=== PATIENT | male | born 1955 | race Two or more races ===

== ENCOUNTER 2017-02-02 16:00 | Inpatient (IN) | payer OTHER ==
[~2017-02-02] VITALS: Ht 180.3 cm; Wt 89.8 kg
--- NOTE | 2017-02-02 16:00 | NUR ---
PT [id number] FROM DR OFFICE: R FACIAL WOUND DEHISCENCE S/P FACE LIFT 02/01/17. PT HAS LAC #20 IV ACCESS PATENT. PLACED ON MONITOR. APPLIED PRESSURE TO WOUND. AWAITING MD ORDER.
[2017-02-02] MEDS ORDERED: IV NS 0.9% 1,000 ML ONE ×3 (16:11→23:35)
[2017-02-02] MEDS ORDERED: IV SET PRIMARY PUMP SET 1 EA INFUS.SET MC ONE ×4 (16:11→23:47)
--- NOTE | 2017-02-02 16:20 | NUR ---
CALLED [facility] TRANSFER LINE, , SPOKE WITH SEBASTIAN, TRANSFERRED CALL TO DR. FELIX
[2017-02-02 16:24] LABS: BASOPHILS # (AUTO) 0.1 /CMM (0.0-0.2); BASOPHILS % (AUTO) 0.5 % (0.0-2.0); EOSINOPHILS # (AUTO) 0.1 /CMM (0.0-0.7); EOSINOPHILS % (AUTO) 0.7 % (0.0-6.0); HEMATOCRIT 40 % (39-51); HEMOGLOBIN 13.5 g/dL (13.5-17.5); LYMPHOCYTES # (AUTO) 0.9 /CMM (0.8-4.8); LYMPHOCYTES % (AUTO) 8.1 % (20.0-44.0); MEAN CORPUSCULAR HEMOGLOBIN 30 PG (26.0-33.0); MEAN CORPUSCULAR HGB CONC 34 g/dl (31.0-36.0); MEAN CORPUSCULAR VOLUME 88 fL (80-96); MONOCYTES # (AUTO) 0.6 /CMM (0.1-1.30); MONOCYTES % (AUTO) 5.4 % (2.0-12.0); NEUTROPHILS # (AUTO) 9.1 /CMM (1.8-8.9); NEUTROPHILS % (AUTO) 85.3 % (43.0-81.0); PLATELET COUNT (AUTO) 322 /CMM (150-450); RDW COEFFICIENT OF VARIATION 14.9 (11.5-15.0); RED BLOOD CELL COUNT(AUTO) 4.53 MIL/uL (4.5-6.0); WHITE BLOOD COUNT (AUTO) 10.8 K/uL (4.3-11.0)
[2017-02-02] MEDS ORDERED: IV NS 0.9% 1,000 ML BAG IV ONE (16:30)
[2017-02-02 16:34] LABS: CALCIUM, SERUM 8.8 mg/dL (8.5-10.1); CREATININE 0.9 mg/dL (0.6-1.3); POTASSIUM 4.3 mmol/L (3.5-5.1)
[2017-02-02 16:38] LABS: PROTHROMBIN TIME 10.4 SECS (9.5-12.7)
[2017-02-02 16:40] LABS: ALBUMIN 3.2 g/dL (3.4-5.0); BILIRUBIN,DIRECT 0.2 mg/dL (0.0-0.2); BILIRUBIN,TOTAL 1.2 mg/dL (0.2-1.0); TOTAL PROTEIN, SERUM 6.6 g/dL (6.4-8.2)
--- NOTE | 2017-02-02 16:42 | NUR ---
FAXED FACESHEET TO SEBASTIAN AT [phone]
--- NOTE | 2017-02-02 17:03 | NUR ---
RECEIVED CALL FROM [facility], PT ACCEPTED AND ILL GO TO OR PHONE #; [phone] FAX, AUGUSTIN
--- NOTE | 2017-02-02 17:12 | NUR ---
CALLED [facility] FOR TRANSPORT TO [facility], ETA 90 MIN
--- NOTE | 2017-02-02 17:29 | NUR ---
REPORT GIVEN TO NURSE PARKINSON AT [facility] OR 5 : [phone].
--- NOTE | 2017-02-02 17:41 | NUR ---
CALLED MULTIPLE AMBULANCE COMPANIES INCLUDING: [facility], [facility], [facility], [facility], [facility], [facility], [facility], [facility], [facility], [facility]NA, [facility]AN[facility], AFTER CALL WITH [facility] TO TRY TO GET BETTER ETA, EVERY PLACE SAID AT LEAST 90 MIN- 2 HOURS.
[2017-02-02] MEDS ORDERED: IV SET PRIMARY 1 EA INFUS.SET MC ONE (17:57)
[2017-02-02] MEDS ORDERED: IV NS 0.9% 1,000 ML IV ONE (18:00)
--- NOTE | 2017-02-02 18:04 | NUR ---
CALLED , , TRANSFERRED CALL TO
[2017-02-02] MEDS ORDERED: OMEG-72 PO (18:25)
[2017-02-02] MEDS ORDERED: TEST200V3 IM (18:25)
[2017-02-02] MEDS ORDERED: ANAS1TAB8 PO (18:25)
[2017-02-02] MEDS ORDERED: EMTR1TAB6 PO (18:25)
[2017-02-02] MEDS ORDERED: ATOR40TA PO (18:25)
[2017-02-02] MEDS ORDERED: LORA1TAB PO (18:25)
[2017-02-02] MEDS ORDERED: VALS80TA2 PO (18:25)
--- NOTE | 2017-02-02 18:50 | NUR ---
CALLED [facility] TO [facility]BULANCE TRANSPORT
[2017-02-02 18:55] LABS: BASOPHILS # (AUTO) 0.2 /CMM (0.0-0.2); BASOPHILS % (AUTO) 1.9 % (0.0-2.0); EOSINOPHILS % (AUTO) 0.1 % (0.0-6.0); HEMATOCRIT 33 % (39-51); HEMOGLOBIN 11.2 g/dL (13.5-17.5); LYMPHOCYTES # (AUTO) 1.2 /CMM (0.8-4.8); MEAN CORPUSCULAR HEMOGLOBIN 30 PG (26.0-33.0); MEAN CORPUSCULAR HGB CONC 34 g/dl (31.0-36.0); MEAN CORPUSCULAR VOLUME 88 fL (80-96); MONOCYTES # (AUTO) 0.6 /CMM (0.1-1.30); MONOCYTES % (AUTO) 5.7 % (2.0-12.0); NEUTROPHILS # (AUTO) 8.1 /CMM (1.8-8.9); NEUTROPHILS % (AUTO) 80.3 % (43.0-81.0); PLATELET COUNT (AUTO) 280 /CMM (150-450); RDW COEFFICIENT OF VARIATION 15.2 (11.5-15.0); RED BLOOD CELL COUNT(AUTO) 3.77 MIL/uL (4.5-6.0); WHITE BLOOD COUNT (AUTO) 10.1 K/uL (4.3-11.0)
--- NOTE | 2017-02-02 18:55 | NUR ---
CALLED NURSING SUP. FOR TELE BED
--- NOTE | 2017-02-02 19:00 | NUR ---
PT TRANSFER TO OR FOR SURGERY
--- NOTE | 2017-02-02 19:07 | NUR ---
DR.TIM GAY JOY PATTERN ASSEMBLER
--- NOTE | 2017-02-02 19:17 | NUR ---
PT TRANSFERRED TO OR FOR EMERGENCY SURGERY.
[2017-02-02] MEDS ORDERED: LIDOCAINE 0.5% HCL 50 ML VIAL ONE (19:19)
[2017-02-02] MEDS ORDERED: ALBUMIN 5% 12.5 GM/250 ML BOTTLE IV ONE (20:14)
[2017-02-02] MEDS ORDERED: ALBUMIN 5% 250 ML IV ONE (20:22)
[2017-02-02] MEDS ORDERED: HEMOSTATIC MATRIX 10 ML 1 EACH PAD MC ONE (20:36)
[2017-02-02] MEDS ORDERED: MORPHINE SULFATE INJ 10 MG/ML DISP.SYRIN ONE ×2 (21:18→23:30)
[2017-02-02] MEDS ORDERED: IV NS 0.9% 1,000 ML IV PRN (21:22)
[2017-02-02 21:30] VITALS: BP 103/67
[2017-02-02] MEDS ORDERED: ACETAMINOPHEN 325 MG TABLET PO PRN (21:30)
[2017-02-02] MEDS ORDERED: Z GUARD REMEDY 2 OZ OINT TP PRN (21:30)
[2017-02-02] MEDS ORDERED: MORPHINE SULFATE INJ 2 MG/ML DISP.SYRIN IV PRN (21:30)
[2017-02-02] MEDS ORDERED: ZOLPIDEM TARTRATE 5 MG TABLET PO PRN (21:30)
[2017-02-02] MEDS ORDERED: PROPOFOL 100 ML IV ONE (21:30)
[2017-02-02] MEDS ORDERED: DEXAMETHASONE SOD PHOSPHATE 10 MG/ML VIAL IV STA (21:36)
[2017-02-02 21:51] VITALS: BP 116/71
--- NOTE | 2017-02-02 21:51 | NUR ---
PER DR MCINTOSH PLACED PT ON AC 14, 500, PEEP 5 AND 50% FIO2, pt was intubated with 7.0 ET tube and secured at 26 at the lip,pts ET tube is held with a suture which was done by the MD, and also secured with cloth tape.
--- NOTE | 2017-02-02 21:55 | NUR ---
ICU/RN RECEIVED DIRECT FROM OR S/P FACELIFT W/ UPPER BLEPH.PT ON VENT 50% FI02 SAT 100%,BOTH EYES COMPLETELY SHUT FROM SWELLING MEENA DRAIN TO RT AN LT TEMPORAL AREA W/ SCANT BLOODY DRAINAGE ON LT SIDE 0 ON RT SIDE, FACE SWOLLEN AND W/ COBAN HEAD DRESSING.SUTURES BILATERALLY UPPER BLEPH.HEAD OF BED ON 45DEGREE ANGLE W/ NECK ROLL.MODERATE TO SEVERE BRUISING TO NECK,SOFT AND FLAT.
[2017-02-02] MEDS ORDERED: DESMOPRESSIN 20 MCG in IV NS 0.9% 50 ML IV ONE (22:00)
[2017-02-02] MEDS ORDERED: PROPOFOL 100 ML IV PRN (22:00)
[2017-02-02] MEDS ORDERED: NOREPINEPHRINE 8 MG in IV D5W 500 ML IV PRN (22:00)
[2017-02-02 22:14] VITALS: BP 133/98
[2017-02-02] MEDS: CEFAZOLIN 1 GM in IV D5W 50 ML IV SCH (22:30)
[2017-02-02 22:36] LABS: HEMATOCRIT 34 % (39-51); HEMOGLOBIN 11.2 g/dL (13.5-17.5); LYMPHOCYTES # (AUTO) 0.8 /CMM (0.8-4.8); LYMPHOCYTES % (AUTO) 5.1 % (20.0-44.0); MEAN CORPUSCULAR HEMOGLOBIN 29 PG (26.0-33.0); MEAN CORPUSCULAR HGB CONC 33 g/dl (31.0-36.0); MEAN CORPUSCULAR VOLUME 89 fL (80-96); MONOCYTES # (AUTO) 0.5 /CMM (0.1-1.30); MONOCYTES % (AUTO) 3.2 % (2.0-12.0); NEUTROPHILS # (AUTO) 15.1 /CMM (1.8-8.9); NEUTROPHILS % (AUTO) 91.7 % (43.0-81.0); PLATELET COUNT (AUTO) 261 /CMM (150-450); RDW COEFFICIENT OF VARIATION 16.3 (11.5-15.0); RED BLOOD CELL COUNT(AUTO) 3.83 MIL/uL (4.5-6.0); WHITE BLOOD COUNT (AUTO) 16.5 K/uL (4.3-11.0)
[2017-02-02 23:00] VITALS: BP 143/76
[2017-02-02] MEDS ORDERED: MORPHINE SULFATE INJ 2 MG/ML DISP.SYRIN ONE (23:03)
--- NOTE | 2017-02-02 23:10 | NUR ---
ICU/COGNOS ARCHITECT PT HAS MODERATE TO SEVER SWELLING TO FACE, S/P FACE LIGHT WITH SUTURES AND STERRI STRIPS TO SIDE OF EYES, UPPER BILATERAL BLEPH. ICED 4X4 TO EYES WITH ICE MASK APPLIED FOR 20 MINUTES ON THEN 20 MINUTES OFF. WILL CONTINUE THIS UNTIL SWELLING HAS SUBSIDED. BILATERAL J/P WERE MILKED TO START THE FLOW. THERE APPEARS TO BE SOME DARK BLOOD IN TUBE, POSSIBLE CLOT WILL WATCH FOR THIS. NECK HAS MODERATE TO SEVER BRUISING UNDER DRESSING, BUT IS SOFT AND FLAT TO TOUCH. RN NURSE NOTIFIED OF FINDINGS.
[2017-02-02 23:12] VITALS: BP 143/76
[2017-02-02 23:30] VITALS: BP 92/42
[2017-02-02] MEDS ORDERED: MORPHINE SULFATE INJ 10 MG/ML DISP.SYRIN IV PRN (23:30)
[2017-02-02] MEDS ORDERED: CEFAZOLIN 1 GM ONE (23:41)
[2017-02-02] MEDS ORDERED: DEXAMETHASONE SOD PHOSPHATE 4 MG/ML VIAL ONE (23:41)
[2017-02-02] MEDS ORDERED: IV D5W 50 ML IV ONE (23:42)
[2017-02-02] MEDS ORDERED: FENTANYL PF 100MCG/2ML AMPUL ONE ×2 (23:45→23:46)
[2017-02-02] MEDS ORDERED: IV NS 0.9% 250 ML IV ONE (23:46)
[2017-02-02] MEDS ORDERED: SECONDARY IV SET 1 EA INFUS.SET MC ONE (23:47)
[2017-02-02] MEDS ORDERED: NOREPINEPHRINE 4 MG/4 ML AMPUL IV ONE (23:55)
[2017-02-02] MEDS ORDERED: IV D5W 500 ML IV ONE (23:56)
[2017-02-02] MEDS ORDERED: CEFAZOLIN 2 GM ONE (23:59)
[2017-02-03] VITALS (74 sets, daily range): BP systolic 56–204; BP diastolic 30–103
[2017-02-03] MEDS ORDERED: DESMOPRESSIN 4 MCG/ML AMPUL ONE
[2017-02-03] MEDS ORDERED: FENTANYL CITRATE IV 1,250 MCG in IV NS 0.9% 225 ML IV PRN ×2
[2017-02-03] MEDS ORDERED: IV NS 0.9% 50 ML IV ONE (00:05)
[2017-02-03] MEDS ORDERED: IV SET PRIMARY PUMP SET 1 EA INFUS.SET MC ONE ×3 (00:08→07:46)
[2017-02-03] MEDS ORDERED: DOPamine 400MG/D5W 250ML RTU 250 ML IV ONE (00:29)
[2017-02-03] MEDS ORDERED: PROPOFOL 100 ML IV ONE ×3 (00:29→05:20)
[2017-02-03] MEDS ORDERED: DOPamine 400 MG/D5W 250 ML RTU PIGGYBACK IV ONE (00:30)
[2017-02-03] MEDS ORDERED: NOREPINEPHRINE 16 MG in IV D5W 500 ML IV PRN (00:30)
[2017-02-03 00:39] LABS: ABG BASE EXCESS 2.9 mmol/L; ABG OXYGEN SATURATION 98.2 % (92.0-98.5); ABG PCO2 56.1 mmHg (35.0-45.0); ABG PO2 178.2 mmHg (75.0-100.0); ABG TOTAL HEMOGLOBIN 10.9 G/dL (13.5-18.0); AaDO2 115.2 mmHg; COHb 0.4 % (0.5-1.5); MetHb 0.9 % (0.0-1.5); O2Hb 96.9 % (94.0-97.0); SITE, ABG Right Radial
--- NOTE | 2017-02-03 00:45 | NUR ---
ICU/CAFE MANAGER PER RESPIRATORY THERAPIST BERNABE Griffith ORDERS WERE RECEIVED TO DO VENT CHANGES ORDERS WERE PLACED IN COMPUTER, PER MD SAMARIA SUAZO. ALSO AT THIS TIME RN WAS NOTIFIED NOT TO DO EKG, THIS TOO WAS CANCELLED. ORDERS WERE CARRIED OUT FOR RN BUSY AT BEDSIDE.
--- NOTE | 2017-02-03 00:59 | NUR ---
ICU/RN GAY NOTIFIED OF V-TACH W/SBP OF 84MMHG.W/STRONG PULSES.
--- NOTE | 2017-02-03 01:20 | NUR ---
ICU/RN.SBP 66MMHG,250ML NS WIDE OPEN WHILE AWAITING FOR SAMARIA RASHID'S CALL NS 250 ML GIVEN LEVOPHED STARTED PRIOR TO 2ND BOLUS OF IV.
[2017-02-03] MEDS ORDERED: FENTANYL PF 100MCG/2ML AMPUL ONE (01:56)
[2017-02-03] MEDS: PROPOFOL 100 ML IV PRN ×10 (03:39→22:10)
[2017-02-03] MEDS ORDERED: HEMOSTATIC MATRIX 10 ML 1 EACH PAD MC ONE (05:00)
[2017-02-03] MEDS ORDERED: IV D5W 50 ML IV ONE (05:40)
[2017-02-03 05:48] LABS: ALBUMIN 3.2 g/dL (3.4-5.0); BILIRUBIN,TOTAL 0.8 mg/dL (0.2-1.0); CALCIUM, SERUM 8.1 mg/dL (8.5-10.1); MAGNESIUM 2.2 mg/dL (1.8-2.4); PHOSPHORUS 2.9 mg/dL (2.5-4.9); POTASSIUM 4.9 mmol/L (3.5-5.1); TOTAL PROTEIN, SERUM 6.3 g/dL (6.4-8.2)
[2017-02-03] MEDS: CEFAZOLIN 1 GM in IV D5W 50 ML IV SCH (05:50)
[2017-02-03 05:52] LABS: THYROID STIMULATING HORMONE 0.411 uIU/mL (0.358-3.74)
--- NOTE | 2017-02-03 06:00 | NUR ---
ICU/RN SBP EXTREMELY LABILE.CURRENTLY ON LEVOPHED DRIP AT 8MCG/MIN.DIPRIVAN DRIP AT 100MCG/KG/MIN. PT HAS TENDENCY TO SIT BOLT UPRIGHT,W/ 4RN'S IN ATTENDANCE.ON FENTANYL DRIP FOR PAIN.MONITOR STABLE LAST 3HRS,ON DOPAMINE DRIP AT 2MC/KG/MIN.ICED FOLDED 4X4 TOPPED W/ ICE BAG APPLIED TO SWOLLEN BOTH EYES,ON X20MIN AND [id number].
[2017-02-03 06:20] LABS: BASOPHILS % (AUTO) 0.1 % (0.0-2.0); HEMATOCRIT 31 % (39-51); HEMOGLOBIN 10.5 g/dL (13.5-17.5); LYMPHOCYTES # (AUTO) 0.9 /CMM (0.8-4.8); LYMPHOCYTES % (AUTO) 7.5 % (20.0-44.0); MEAN CORPUSCULAR HEMOGLOBIN 30 PG (26.0-33.0); MEAN CORPUSCULAR HGB CONC 34 g/dl (31.0-36.0); MEAN CORPUSCULAR VOLUME 88 fL (80-96); MONOCYTES # (AUTO) 0.7 /CMM (0.1-1.30); MONOCYTES % (AUTO) 5.7 % (2.0-12.0); NEUTROPHILS # (AUTO) 10.1 /CMM (1.8-8.9); NEUTROPHILS % (AUTO) 86.7 % (43.0-81.0); PLATELET COUNT (AUTO) 320 /CMM (150-450); RDW COEFFICIENT OF VARIATION 15.5 (11.5-15.0); RED BLOOD CELL COUNT(AUTO) 3.53 MIL/uL (4.5-6.0); WHITE BLOOD COUNT (AUTO) 11.7 K/uL (4.3-11.0)
--- NOTE | 2017-02-03 07:00 | NUR ---
PT RECEIVED ORALLY INTUBATED ON MECHANICAL VENT W/ SETTINGS PER . CUFF INFLATED, INDUSTRIAL HYGIENE MANAGER DONE, ETT SUTURED TO LIP IN SURGERY. ALARMS CHECKED, VENT IN RED OUTLET, AMBUBAG AT BEDSIDE. PT SX'ED PRN, NO RESP DISTRESS NOTED. PLAN IS TO CONTINUE CARE W/ CURRENT SETTINGS AND MONITOR PATIENT FOR CHANGES. VT CHANGED TO [address] MALDONADO. Addendum: 02/03/17 at 1302 by NICOLÁS HOLLOWAY RT Amended: Links added.
--- NOTE | 2017-02-03 08:02 | NUR ---
WOUND CARE CONSULT: PT NOT STABLE FOR TURNING/SKIN ASSESSMENT AT THIS TIME. DRESSINGS TO FACE DRY AND INTACT WITH MEENA DRAINS BILATERALLY. PT TO BE TURNED AND REPOSITIONED EVERY 2 HRS PT CONDITION PERMITS, HEELS FLOATED. ALL SKIN PROTECTION MEASURES IN PLACE AND DISCUSSED WITH NURSING STAFF. STEPHEN SCORE IS 13. PT ON DYLLAN PRESSURE REDISTRIBUTION MATTRESS. WILL SEE PRN. BASSETT IN USE. IN AGREEMENT WITH PLAN OF CARE.
[2017-02-03] MEDS: IV NS 0.9% 1,000 ML IV PRN ×3 (08:26→17:27)
[2017-02-03] MEDS ORDERED: IV NS 0.9% 500 ML IV ONE ×2 (09:36→10:00)
[2017-02-03] MEDS ORDERED: FEE PK DOSING 1 MIN EA MC ONE (09:46)
[2017-02-03] MEDS ORDERED: SECONDARY IV SET 1 EA INFUS.SET MC ONE ×2 (10:22→17:08)
[2017-02-03] MEDS: MEROPENEM 1 G in IV NS 0.9% 100 ML IV SCH ×2 (10:26→17:08)
[2017-02-03] MEDS: VANCOMYCIN 1.25 GM in IV D5W 500 ML IV SCH (11:09)
[2017-02-03] MEDS: MORPHINE SULFATE INJ 2 MG/ML DISP.SYRIN IV PRN ×3 (14:44→20:01)
--- NOTE | 2017-02-03 16:15 | NUR ---
NOVELTY CANDY MAKER NOTE Received patient in am, with ETT to vent, tolerated settings. With OGT clamped. On facial ice pack for swelling. With right and left temporals MEENA drains both draining serosanguineous drainage. With right femoral TLC, LAC 20, RAC 18. With REACHER restraints on for episode of agitation and trying to pull out ETT. On Diprivan @ 100mcg and Fentanyl @ 25mcg, will titrate accordingly. With Dopamine @ 2mcg and Levo @ 8mcg, will titrate as ordered. SBP 140's will titrate and continue to monitor. 0900: S/E by Dr. No, with order to titrate off Dopamine and Fentanyl drips and monitor for BP and sedation. Will continue Morphine. 0930: S/E by Dr. Shell, will F/U with ABG. 1100: S/E by dr. Brock, spoke with friend Bebo at bedside and triedn to call sister for more info. 1115: Spoke with Jackie johnson and placed name on responsible green party list, update given. 1400: Dr. Shell ordered to change TV 550, made RT aware. 1500: No any significant changes noted at this time, placed patient on KCI mattress. 1530: S/E by Dr. Lake, checked for facial swelling and MEENA drains, with order to elevate HOB 30 degrees. Patient on 2mcg of Levo and Diprivan @ 70mcg at this time.
[2017-02-03] MEDS: HYDROCORTISONE SOD SUCCINATE 100 MG/2 ML VIAL IV SCH (18:10)
--- NOTE | 2017-02-03 19:23 | NUR ---
ICU/RN RECEIVED PT ON VENT VIA ORAL ETT FI02 AT 40% W/ O2 SAT OF 98-99%.COBAN HEAD DRESSING INTACT W/ BILATERAL MEENA TO RT AND LT.SIDE TO TEMPORAL REGION.CONTINUOUS ICE 4X4 DRESSING TO OU 20MIN ON AND 20MIN OUT.MEENA'S DRAINING SCANT AMT DRAINAGE.FACE AND NECK SWOLLEN. ON DIPRIVAN DRIP AT 80MCG/KG/MIN.LEVOPHED INCREASED TO 3MCG/MIN SBP =88MMHG .MONITOR SHOWS NSR.
--- NOTE | 2017-02-03 19:55 | NUR ---
ICU/RN PT AGITATED AND RESTLESS,TRASHING IN BED,BOTH LEGS DANGLING ON LT. SIDE OF BED,DIPRIVAN INC.TO 100MCG/KG/MIN.PROCEEDED TO GIVE 2MG MORPHINE IVP ORDERED.
[2017-02-04] VITALS (65 sets, daily range): BP systolic 68–141; BP diastolic 36–81
[2017-02-04] MEDS ORDERED: IV SET PRIMARY PUMP SET 1 EA INFUS.SET MC ONE ×2 (00:01→00:31)
[2017-02-04] MEDS: PROPOFOL 100 ML IV PRN ×6 (00:18→11:56)
[2017-02-04] MEDS ORDERED: LORAZEPAM INJ 2 MG/ML VIAL ONE (00:45)
[2017-02-04] MEDS: LORAZEPAM INJ 2 MG/ML VIAL IV PRN ×4 (00:52→12:06)
[2017-02-04] MEDS: VANCOMYCIN 1.25 GM in IV D5W 500 ML IV SCH ×3 (01:12→23:43)
[2017-02-04] MEDS: IV NS 0.9% 1,000 ML IV PRN ×3 (01:23→20:33)
[2017-02-04] MEDS: MEROPENEM 1 G in IV NS 0.9% 100 ML IV SCH ×3 (02:12→17:36)
[2017-02-04] MEDS: MORPHINE SULFATE INJ 2 MG/ML DISP.SYRIN IV PRN ×2 (04:42→11:46)
[2017-02-04 05:34] LABS: INR 0.94 (0.87-1.13)
[2017-02-04 05:38] LABS: ALBUMIN 2.4 g/dL (3.4-5.0); BILIRUBIN,TOTAL 0.5 mg/dL (0.2-1.0); CALCIUM, SERUM 7.7 mg/dL (8.5-10.1); CREATININE 0.8 mg/dL (0.6-1.3); MAGNESIUM 2.4 mg/dL (1.8-2.4); PHOSPHORUS 2.7 mg/dL (2.5-4.9); POTASSIUM 4.3 mmol/L (3.5-5.1)
[2017-02-04 05:39] LABS: TROPONIN I 0.067 ng/mL (0.00-0.056)
[2017-02-04] MEDS: NOREPINEPHRINE 16 MG in IV D5W 500 ML IV PRN ×2 (06:06→14:45)
[2017-02-04 06:18] LABS: BASOPHILS # (AUTO) 0.1 /CMM (0.0-0.2); BASOPHILS % (AUTO) 0.5 % (0.0-2.0); EOSINOPHILS % (AUTO) 0.1 % (0.0-6.0); HEMATOCRIT 28 % (39-51); HEMOGLOBIN 9.1 g/dL (13.5-17.5); LYMPHOCYTES # (AUTO) 2.5 /CMM (0.8-4.8); MEAN CORPUSCULAR HEMOGLOBIN 29 PG (26.0-33.0); MEAN CORPUSCULAR HGB CONC 33 g/dl (31.0-36.0); MEAN CORPUSCULAR VOLUME 89 fL (80-96); MONOCYTES # (AUTO) 1.2 /CMM (0.1-1.30); MONOCYTES % (AUTO) 9.8 % (2.0-12.0); NEUTROPHILS # (AUTO) 8.2 /CMM (1.8-8.9); NEUTROPHILS % (AUTO) 68.6 % (43.0-81.0); PLATELET COUNT (AUTO) 228 /CMM (150-450); RDW COEFFICIENT OF VARIATION 15.9 (11.5-15.0); RED BLOOD CELL COUNT(AUTO) 3.11 MIL/uL (4.5-6.0)
[2017-02-04 07:07] LABS: *BASOS 0 % (.); *EOS 0 % (.); *HGB 9.6 g/dL (12.6-17.7); *IMMATURE GRANULOCYTES 0 % (.); *LYMPHOCYTES 9 % (.); *LYMPHS, ABSOLUTE 1.3 x10E3/uL (0.7-3.1); *MCH 29.3 pg (26.6-33.0); *MCHC 33.1 g/dL (31.5-35.7); *MCV 88 fL (79-97); *MONOCYTES 9 % (.); *MONOS, ABSOLUTE 1.2 x10E3/uL (0.1-0.9); *NEUTROPHILS 82 % (.); *PLT 312 x10E3/uL (150-379); *RBC 3.28 x10E6/uL (4.14-5.80); *RDW 14.7 % (12.3-15.4); *WBC 13.4 x10E3/uL (3.4-10.8)
--- NOTE | 2017-02-04 07:28 | NUR ---
ICU/RN MEENA TO LT TEMPORAL DRAINED 10ML SEROUS-SANGUINOUS AND RT DRAINEED 20 ML OF THE SAME.
--- NOTE | 2017-02-04 07:49 | NUR ---
RT PT RECEIVED ORALLY INTUBATED WITH A 7.0 ETT SECURED AT 26CM AT THE LIP LINE. PT IS CURRENTLY SEDATED AT THIS TIME. VENT ALARMS ARE SET AND AUDIBLE WITH BVM BY BEDSIDE. TOBACCO PRIZER CUFF PRESSURE NOTED. VENT IS PLUGGED INTO RED OUTLET. NO RESPIRATORY DISTRESS NOTED AT THIS TIME, WILL CONTINUE TO MONITOR. Addendum: 02/04/17 at 1749 by MUNDO KINSEY RT Amended: Links added.
--- NOTE | 2017-02-04 08:00 | NUR ---
ARRANGING FUNERAL DIRECTOR; ASSESSMENT RECEIVED PT VENTED VIA ETT, SEE FLOW SHEET FOR VENT SETTINGS. PT ON SEDATION, DIPRIVAN DRIP AT 80MCG/KG/MIN, NOTED PT RESTLESS AND ATTEMPTING TO REACH FOR ETT. ADRIAN WRIST RESTRAINS ON. ASKED PT TO FOLLOW SIMPLE COMMAND, BUT PT UNABLE TO BUT APPEARS TO BECOME MORE RESTLESS. WILL REVIEW MEDICATIONS. PT HAS [place] WRAP AROUND HEAD, S/P FACIAL SURGERY. NOTED FACIAL SWELLING UNABLE TO ASSESS PUPIL REACTION DUE TO SWELLING, ICE PACKS PLACED ORDERED. ADRIAN TEMPORAL JPRAP NOTED WITH SEROSANGUINEOUS FLUID DRAINING. OG TUBE CLAMPED. BASSETT CATH INTACT DRAINING TO GRAVITY CLEAR YELLOW URINE NOTED.
[2017-02-04 08:28] LABS: ABG BASE EXCESS 2.4 mmol/L; ABG OXYGEN SATURATION 97.6 % (92.0-98.5); ABG PCO2 39.1 mmHg (35.0-45.0); ABG PH 7.449 (7.350-7.450); ABG PO2 122.8 mmHg (75.0-100.0); ABG TOTAL HEMOGLOBIN 9.3 G/dL (13.5-18.0); AaDO2 117.4 mmHg; COHb 0.4 % (0.5-1.5); MetHb 0.8 % (0.0-1.5); O2Hb 96.4 % (94.0-97.0); PEEP,BG 5 cm H2O; SITE, ABG Right Radial; VT, ABG 550 mL
[2017-02-04] MEDS: HYDROCORTISONE SOD SUCCINATE 100 MG/2 ML VIAL IV SCH ×3 (09:20→17:36)
[2017-02-04] MEDS ORDERED: ATROPINE SULFATE 1 MG/10 ML DISP.SYRIN IV ONE (09:30)
[2017-02-04] MEDS ORDERED: IV NS 0.9% 500 ML BAG IV ONE (09:30)
--- NOTE | 2017-02-04 09:30 | NUR ---
GENERAL ENGINEERING TEACHER; CARDIO DR. MILLS NOTIFIED REGARDING PTS LOW BP, AND CVP READING OF 5, BUT UNSURE THE ACCURACY OF CVP READING SINCE TLC LINE IS ON THE RIGHT FEMORAL. NEW ORDERS GIVEN AND ENTERED TO GIVEN 500ML IV NORMAL SALINE BOLUS AND ATROPINE 0.5MG. WILL F/U WITH PHARMACY TO GET MEDICATIONS VERIFIED. Addendum: 02/04/17 at 0953 by RHIANNA FRANCOIS RN DR. MILLS AT BEDSIDE STATES NOT TO GIVEN ATROPINE. ATRPOPINE D/C AND NOT GIVEN
[2017-02-04] MEDS ORDERED: SET PCA INFUSE SET 1 EA INFUS.SET MC ONE ×2 (10:14→11:59)
[2017-02-04] MEDS: MIDAZOLAM HCL 100 MG in IV NS 0.9% 80 ML IV PRN (10:37)
[2017-02-04] MEDS ORDERED: MORPHINE SULFATE INJ 4 MG/ML DISP.SYRIN IV ONE (12:02)
[2017-02-04] MEDS: MORPHINE SULFATE PF DRIP 250 MG in IV D5W 240 ML IV PRN (12:40)
[2017-02-04 13:07] LABS: APPEARANCE,URINE CLEAR (CLEAR); BILIRUBIN,URINE NEGATIVE (NEGATIVE); BLOOD, URINE NEGATIVE Ery/uL (NEGATIVE); COLOR,URINE Light yellow (YELLOW); KETONES,URINE NEGATIVE (NEGATIVE); LEUKOCYTE ESTERASE ,URINE NEGATIVE (NEGATIVE); NITRITE, URINE NEGATIVE (NEGATIVE); PROTEIN,URINE NEGATIVE (NEGATIVE); UGLUCOSE NEGATIVE (NEGATIVE); UROBILINOGEN,URINE 0.2 EU/dL (0.2)
--- NOTE | 2017-02-04 13:12 | NUR ---
FOOD OPERATIONS MANAGER; SEDATION DIPRIVAN DRIP SLOWLY DECREASING DOSE. NOW DIPRIVAN DRIP AT 45MCG/KG/MIN. VERSED DRIP WAS INITIATED ORDERED. NOTED PT STARTING TO BECOME RESTLESS AND BITTING ON ETT AROUND 1130. DR. MALDONADO AT BEDSIDE NEW ORDERS GIVEN TO START PT ON MORPHINE DRIP FOR SEDATION AND TO INCREASE VERSED TO 7MG/HR. CURRENTLY PT IS NOW ON VERSED 7MG/HR, MORPHINE 5MG/HR WILL CONTINUE TO DECREASE DIPRIVAN DRIP UNTIL D/C. WILL CONTINUE TO MONITOR CLOSELY FOR SEDATION AND GIVEN PRN MEDICATIONS NEEDED.
[2017-02-04 14:35] LABS: *% CD 4 POS. LYMPH 52.5 % (30.8-58.5); *% CD 8 POS. LYMPH 28.7 % (12.0-35.5); *ABSOLUTE CD 4 HELPER 683 /uL (359-1519); *ABSOLUTE CD 8 SUPPRESSOR 373 /uL (109-897); *CD4/CD8 RATIO 1.83 (0.92-3.72)
[2017-02-04 14:50] LABS: CREATININE, URINE 45.3 MG/DL (30.0-125.0)
--- NOTE | 2017-02-04 18:34 | NUR ---
CHILLING HOOD OPERATOR; OUTPUT JPRATT LEFT JPRATT= 15ML RIGHT JPRATT = 15ML.
--- NOTE | 2017-02-04 19:30 | NUR ---
ICU/RN RECEIVED PT ON VENT VIA ORA ETT SAT 98% ON 40% FI02.COBAN HEAD DRESSING INTACT, BILATERAL J-P DRAIN TO TEMPORAL AREA W/ VERY SCANT DRAINAGE.FACE,EYELID AND NECK SWOLLEN.ICE COMPRESS TO OU [id number] THEN OFF X20MIN CONTINUOUSLY.ON MORPHINE DRIP AND VERSED DRIP.CVP=5CM H2O AFTER CALIBRATED AND ZEROED.REMAINS ON LEVOPHED DRIP AT 2MCG/MIN.
--- NOTE | 2017-02-04 20:00 | NUR ---
RT NOTE PT RECEIVED MECHANICALLY VENTILATED VIA 7.0 ETT, 26 CM AT LIP. VENT SETTINGS PRESCRIBED. ALARMS SET PER PROTOCOL AND AUDIBLE. VENT PLUGGED IN TO RED OUTLET. PT IS SEDATED. POT PRESS OPERATOR PERFORMED. BILATERAL CHEST RISE NOTED. NO DISTRESS NOTED, WILL CONTINUE TO MONITOR. Addendum: 02/04/17 at 2003 by NATHANIEL CHAUDHARI RT Amended: Links added.
[2017-02-05] VITALS (52 sets, daily range): BP systolic 98–140; BP diastolic 53–88
[2017-02-05] MEDS: MIDAZOLAM HCL 100 MG in IV NS 0.9% 80 ML IV PRN ×2 (00:48→12:52)
[2017-02-05] MEDS: MEROPENEM 1 G in IV NS 0.9% 100 ML IV SCH ×3 (02:05→17:00)
--- NOTE | 2017-02-05 02:25 | NUR ---
ICU/RN PT AGITATED AD KICKING,DOES NOT FOLLOW COMMANDS.MORPHINE DRIP INCREASED TO 8MG/HR.ATIVAN 1MGIVP GIVEN PT CONTINUES TO KICK AND SAT BOLT UPRIGHT.
[2017-02-05] MEDS: LORAZEPAM INJ 2 MG/ML VIAL IV PRN (02:29)
--- NOTE | 2017-02-05 02:32 | NUR ---
ICU/RN CALM AT PRESENT.
[2017-02-05] MEDS: IV NS 0.9% 1,000 ML IV PRN ×2 (04:31→13:18)
[2017-02-05 04:50] LABS: BASOPHILS % (AUTO) 0.2 % (0.0-2.0); EOSINOPHILS % (AUTO) 0.4 % (0.0-6.0); HEMATOCRIT 26 % (39-51); HEMOGLOBIN 8.6 g/dL (13.5-17.5); LYMPHOCYTES # (AUTO) 2.1 /CMM (0.8-4.8); LYMPHOCYTES % (AUTO) 26.5 % (20.0-44.0); MEAN CORPUSCULAR HEMOGLOBIN 30 PG (26.0-33.0); MEAN CORPUSCULAR HGB CONC 34 g/dl (31.0-36.0); MEAN CORPUSCULAR VOLUME 89 fL (80-96); MONOCYTES # (AUTO) 0.8 /CMM (0.1-1.30); MONOCYTES % (AUTO) 9.7 % (2.0-12.0); NEUTROPHILS % (AUTO) 63.2 % (43.0-81.0); PLATELET COUNT (AUTO) 205 /CMM (150-450); RDW COEFFICIENT OF VARIATION 15.5 (11.5-15.0); RED BLOOD CELL COUNT(AUTO) 2.88 MIL/uL (4.5-6.0); WHITE BLOOD COUNT (AUTO) 7.9 K/uL (4.3-11.0)
[2017-02-05 04:55] LABS: CALCIUM, SERUM 7.9 mg/dL (8.5-10.1); CREATININE 0.8 mg/dL (0.6-1.3); MAGNESIUM 2.3 mg/dL (1.8-2.4); POTASSIUM 3.6 mmol/L (3.5-5.1)
[2017-02-05 05:00] LABS: INR 0.96 (0.87-1.13); PROTHROMBIN TIME 10.2 SECS (9.5-12.7)
--- NOTE | 2017-02-05 07:42 | NUR ---
SYSTEMS ENG NOTE RCVD PT INTUBATED AND SEDATED ON VERSED/MORPHINE TOLERATING ORDERED VENT SETTINGS, SB ON TELE, ON LEVOPHED DRIP MAINTAINING SBP >90 WILL CONTINUE TO MONITOR. BASSETT DRAINING PALE YELLOW URINE. BILATERAL TEMPORAL MEENA BULBS DRAINING SEROSANGUINEOUS FLUID. IV SITES C/D/I/PATENT. NO S/O INFILTRATION OR PHLEBITIS OBSERVED. WILL CONTINUE TO MONITOR PT FOR SAFETY AND COMFORT. CALL LIGHT WITHIN REACH. BED IN LOW AND LOCKED POSITION. BED ALARM ON.
--- NOTE | 2017-02-05 09:01 | NUR ---
RAIL EQUIPMENT OPERATOR NOTE DR. MILLS AT BEDSIDE INFORMED OF PT'S DECREASED UOP, HE WILL REVIEW MEDICAL RECORDS AND ORDER ACCORDINGLY. HE ALSO RECOMMENDED TO D/C CVP LINE.
[2017-02-05] MEDS: HYDROCORTISONE SOD SUCCINATE 100 MG/2 ML VIAL IV SCH ×3 (09:07→17:00)
--- NOTE | 2017-02-05 10:11 | NUR ---
PHYSICIAN PRACTICE MANAGER NOTE DESPITE BEING SEDATED, PT KICKING, SWINGING LEGS OFF BED, ATTEMPTING TO GET OUT OF BED, PULLING AGAINST RESTRAINTS. UNSAFE TO PERFORM SEDATION VACATION. LURDES MARKETING OPERATIONS CONSULTANT INFORMED. PT BEING REPOSITIONED IN BED UNABLE TO REMAIN ON EITHER SIDE, BUE/BLE OFFLOADED. Addendum: 02/05/17 at 1528 by JASBIR WILCOX RN UPON REPOSITIONING PT A ROUND SKIN LESION WAS DISCOVERED OVER THE LEFT UPPER BUTTOCK, APPEARS RED, HARD TO THE TOUCH, NON-BLANCHABLE. UNABLE TO TAKE PICTURE DUE TO PT'S UNSAFE BEHAVIOR. PT ON AIR LOSS MATTRESS, WOUND CONSULT PLACED. HEAVEN CHATMAN, RN AWARE.
--- NOTE | 2017-02-05 11:20 | NUR ---
ENTRY LEVEL TRUCK DRIVER NOTE PT'S SISTER AT BEDSIDE, UPDATED ON PT'S CONDITION. DR. GASTON CALLED, HE WAS INFORMED OF PT'S CONDITION AND DR. MALDONADO'S RECOMMENDATION TO POSSIBLY WEAN IN AM.
[2017-02-05] MEDS: VANCOMYCIN 1.25 GM in IV D5W 500 ML IV SCH ×2 (12:24→20:18)
[2017-02-05] MEDS ORDERED: SET PCA INFUSE SET 1 EA INFUS.SET MC ONE (12:29)
[2017-02-05] MEDS: MORPHINE SULFATE PF DRIP 250 MG in IV D5W 240 ML IV PRN (12:51)
--- NOTE | 2017-02-05 14:22 | NUR ---
WATERSHED COORDINATOR NOTE PT SEDATED, CONTINUES TO KICK AND ATTEMPT TO GET OUT OF BED WHEN STIMULATED IN ANY FORM INCLUDING REPOSITIONING OF BUE/BLE. PT CONTINUES TO BE ON BILATERAL WRISTS RESTRAINTS. WILL CONTINUE TO MONITOR. PT WAS ASSESSED BY DR. GASTON HE WILL REMOVE BANDAGES AND MEENA DRAINS TOMORROW. PT'S SISTER AT BEDSIDE AWARE.
--- NOTE | 2017-02-05 18:25 | NUR ---
TUB OPERATOR NOTE PT CONTINUES TO BE SEDATED ON VERSED AND MORPHINE, SEEMS TO ACKNOWLEDGE VERBAL CUES BUT DOES NOT FOLLOW COMMANDS. TOLERATING ORDERED VENT SETTINGS ETT 7.0 26 AT LIP. SB ON TELE. OG-TUBE PLACEMENT VERIFIED BY AUSCULTATION. BASSETT DRAINING ALEXIA COLORED URINE. DRESSING AROUND FACE C/D/I. IV SITES REMAIN C/D/I/PATENT. NO S/O INFILTRATION OR PHLEBITIS OBSERVED. PT'S CARE WILL BE ENDORSED TO ENAMEL BURNER RN FOR CONTINUITY OF CARE. BED IN LOW AND LOCKED POSITION.
--- NOTE | 2017-02-05 19:59 | NUR ---
RT NOTES PT RECEIVED MECHANICALLY VENTILATED VIA 7.0 ETT 26 CM AT LIP. SETTINGS PRESCRIBED. ALARMS SET PER PROTOCOL AND AUDIBLE. AMBU BAG AT BEDSIDE. VENT PLUGGED IN TO RED OUTLET. PT SEDATED. BILATERAL CHEST RISE NOTED. NO DISTRESS NOTED, WILL CONTINUE TO MONITOR. Addendum: 02/05/17 at 2000 by NATHANIEL CHAUDHARI RT Amended: Links added.
--- NOTE | 2017-02-05 21:09 | NUR ---
BULB SORTER: THEODORA PT INTUBATED AND SEDATED ON VERSED/MORPHINE. TOLERATING ORDERED VENT SETTINGS, SB ON MONITOR, ON LEVOPHED DRIP STOPPED DURING THE DAY. BASSETT DRAINING PALE YELLOW URINE. BILATERAL TEMPORAL MEENA BULBS DRAINING SEROSANGUINEOUS FLUID. IV SITES C/D/I/PATENT. NO S/O INFILTRATION OR PHLEBITIS OBSERVED. RIGHT FEMORAL CENTRAL LINE INTACT. WILL CONTINUE TO MONITOR PT FOR SAFETY AND COMFORT. CALL LIGHT WITHIN REACH. BED IN LOW AND LOCKED POSITION. BED ALARM ON. ONGOING MONITORING..
[2017-02-06] VITALS (56 sets, daily range): BP systolic 93–177; BP diastolic 49–101
[2017-02-06] MEDS: MIDAZOLAM HCL 100 MG in IV NS 0.9% 80 ML IV PRN ×2 (01:51→15:02)
[2017-02-06] MEDS: MEROPENEM 1 G in IV NS 0.9% 100 ML IV SCH ×3 (02:02→17:11)
[2017-02-06] MEDS: VANCOMYCIN 1.25 GM in IV D5W 500 ML IV SCH ×3 (04:24→19:55)
[2017-02-06 04:40] LABS: BASOPHILS % (AUTO) 0.2 % (0.0-2.0); EOSINOPHILS # (AUTO) 0.1 /CMM (0.0-0.7); EOSINOPHILS % (AUTO) 0.7 % (0.0-6.0); HEMATOCRIT 28 % (39-51); HEMOGLOBIN 9.3 g/dL (13.5-17.5); LYMPHOCYTES # (AUTO) 2.1 /CMM (0.8-4.8); LYMPHOCYTES % (AUTO) 24.7 % (20.0-44.0); MEAN CORPUSCULAR HEMOGLOBIN 29 PG (26.0-33.0); MEAN CORPUSCULAR HGB CONC 33 g/dl (31.0-36.0); MEAN CORPUSCULAR VOLUME 88 fL (80-96); MONOCYTES # (AUTO) 0.7 /CMM (0.1-1.30); MONOCYTES % (AUTO) 7.8 % (2.0-12.0); NEUTROPHILS # (AUTO) 5.7 /CMM (1.8-8.9); NEUTROPHILS % (AUTO) 66.6 % (43.0-81.0); PLATELET COUNT (AUTO) 216 /CMM (150-450); RDW COEFFICIENT OF VARIATION 15.2 (11.5-15.0); RED BLOOD CELL COUNT(AUTO) 3.17 MIL/uL (4.5-6.0); WHITE BLOOD COUNT (AUTO) 8.6 K/uL (4.3-11.0)
[2017-02-06 05:00] LABS: CREATININE 0.7 mg/dL (0.6-1.3); MAGNESIUM 2.1 mg/dL (1.8-2.4); POTASSIUM 3.3 mmol/L (3.5-5.1)
--- NOTE | 2017-02-06 05:50 | NUR ---
SSIS DEVELOPER: PT BEING SO AGGRESSIVE, VERY STRONG, EVEN WITH SOFT WRIST RESTRAINTS CAN BE EASILY EXTUBATE HIMSELF,SITTING IN BED, KICKING WITH LEGS, PUT BACK TO MORPHINE AT 8 MG/HR, AND VERSED AT 6 MG/HR, WAS TRYING TO WEAN OFF SEDATION DUE TO PLAN FOR EXTUBATION TODAY. PER INTERFACE DEVELOPER START WEAN OFF SEDATION AT 0400 AM. ONGOING MONITORING...
--- NOTE | 2017-02-06 07:15 | NUR ---
TANBARK PEELER NOTES RECEIVED PATIENT SEDATED , RESPONSIVE TO VERBAL STIMULI , ABLE TO FOLLOWS COMMANDS , NOT IN ACUTE DISTRESS , RESPIRATIONS EVEN AND UNLABORED , SPO2 OF 100% VIA MECHANICAL VENTILATOR SETTINGS ORDERED , ETT 7.0/[address] 59 ON BEDSIDE MONITOR , OJT IN PLACE VERIFIED PLACEMENT VIA AUSCULTATION NOTED WITH GURGLING SOUND AROUND STOMACH , FC DRAINING WELL VIA GRAVITY WITH ALEXIA COLORED URINE , ON BEDREST ON KCI MATTRESS AND DVT PUMPS , RIGHT AND LEFT LOWER EAR MEENA DRAIN IN PLACE DRAINING VIA NEGATIVE PRESSURE NOTED WITH 5ML SEROSANGUINEOUS FLUID , FACIAL DRESSING C/D/I NO S/S OF BLEEDING , IV OF L AC # 20 AND R AC # 20 PATENT AND INTACT SL , R FEMORAL TRIPLE LUMEN CATHETER C/D/I WITH MORPHINE DRIP @ 10MG/HR , VERSED @ 5MG/HR AND NS @ 40ML/HR INFUSING WELL , ALL NEEDS ATTENDED , BED ON LOW AND LOCKED POSITION , SIDE RAILS X2 ,CALL LIGHT WITHIN REACH , HON @ 35 , WILL CONTINUE TO MONITOR .
[2017-02-06] MEDS ORDERED: SECONDARY IV SET 1 EA INFUS.SET MC ONE ×2 (07:50→12:55)
[2017-02-06] MEDS: HYDROCORTISONE SOD SUCCINATE 100 MG/2 ML VIAL IV SCH ×3 (07:58→17:11)
[2017-02-06] MEDS: POTASSIUM CL. PREMIX PERIPHER. 50 ML IV SCH ×4 (07:58→12:08)
--- NOTE | 2017-02-06 08:06 | NUR ---
WOUND CARE CONSULT: PT PRESENTS WITH DRESSINGS TO FACE WHICH ARE DRY AND INTACT AND MEENA DRAINS TO BILATERAL FACE. DEFER TO SURGEON. PT ON FIRST STEP MATTRESS. CONTINUE ALL SKIN PROTECTION MEASURES. DISCUSSED WITH NURSING STAFF. PT HAS AN AREA OF BLANCHING PINK/RED COLOR TO RT THIGH. WILL SEE PRN. MD IN AGREEMENT WITH PLAN OF CARE. MD IN AGREEMENT WITH PLAN OF CARE.
--- NOTE | 2017-02-06 08:45 | NUR ---
ENGLISH AND READING INSTRUCTOR NOTES DR MEDINA AT BEDSIDE , DISCUSSED PT LABS , BILATERAL ENEDELIA PRAT DRAINING VIA NEGATIVE PRESSURE NOTED WITH SEROSANGUINEOUS OUTPUT 10 ML IN AMOUNT FOR 12 HOURS , NO ACTIVE BLEEDING , OFF PRESSORS , AFEBRILE , PENDING WEANING TRIAL , ON MORPHINE @ 10MG/HR AND VERSED @ 5MG /HR , VERIFIED WITH DR MORAN IF SHE WANTED TO RESTART HOME MEDICATIONS , MEDICATION RECONCILIATION IS NOT REVIEWED , PER MD IF PT WAS EXTUBATED ORDER SWALLOW EVAL AND CONTINUE ALL HOME MEDICATIONS ,
[2017-02-06] MEDS ORDERED: POTASSIUM CL. PREMIX PERIPHER. 50 ML IV SCH (09:30)
--- NOTE | 2017-02-06 10:20 | NUR ---
MEDICAL DIRECTOR/HEAD TEAM PHYSICIAN NOTES DR MERCHANT AT BEDSIDE , DISCUSSED PT LABS , NOT ACTIVE BLEEDING , BILATERAL ENEDELIA PRAT DRAINING VIA NEGATIVE PRESSURE WITH SEROSANGUINEOUS OUTPUT TOTAL OF 10ML IN 12 HOURS , NO ACTIVE BLEEDING , OFF PRESSORS , AWARE
--- NOTE | 2017-02-06 10:40 | NUR ---
DOWELER NOTES PT ON SIMV SETTINGS ORDERED STARTED @ 1000 , WITH SPO2 OF 100% OFF VERSED DRIP , HR OF 105 , BP OF 190/55 , AGITATED , KICKING AND TRYING TO GET OUT OF THE BED , DR MALDONADO AT BEDSIDE , NOTIFIED ABG POST SIMV MODE , NOTIFIED REGARDING PT BEHAVIOR , PER MD PUT BACK PT ON SEDATION AND CHANGE VENTILATOR MODE TO AC 18 , TV 550 FIO2 40 AND PEEP OF 5 , WILL DELAY EXTUBATION TODAY AND RE ADDRESS IN AM , WILL CONTINUE TO MONITOR
[2017-02-06] MEDS: LORAZEPAM INJ 2 MG/ML VIAL IV PRN ×2 (10:54→19:32)
[2017-02-06] MEDS ORDERED: IV SET PRIMARY PUMP SET 1 EA INFUS.SET MC ONE (10:58)
--- NOTE | 2017-02-06 13:50 | NUR ---
PLY CUTTER NOTES SEEN AND EVALUATED BY DR FUENTES , NOTIFIED ENEDELIA PRAT DRESSING DRAINING WITH SEROSANGUINEOUS FLUID 5ML IN AMOUNT FOR 12 HOURS , , VERIFIED SUTURE PLACEMENT FROM ETT , PER MD ETT WAS SUTURED AT THE TEETH NOT IN THE LIP , WEANING TRIAL DONE , PER DR MALDONADO HE WILL DELAY EXTUBATION TODAY, PERFORMED DRESSING CHANGE , BILATERAL LOWER EAR ENEDELIA PRAT DISCONTINUED , NO BLEEDING NOTED , PRESSURE DRESSINGS APPLIED , WILL CONTINUE TO MONITOR
[2017-02-06] MEDS ORDERED: LANOLIN/MIN OIL/PETROLAT,WHT 3.5 GM TUBE EACHEYE PRN (14:30)
[2017-02-06] MEDS ORDERED: SET PCA INFUSE SET 1 EA INFUS.SET MC ONE (14:42)
[2017-02-06] MEDS: IV NS 0.9% 1,000 ML IV PRN (15:00)
[2017-02-06] MEDS: MORPHINE SULFATE PF DRIP 250 MG in IV D5W 240 ML IV PRN (15:01)
[2017-02-06 16:02] LABS: ABG BASE EXCESS -0.2 mmol/L; ABG OXYGEN SATURATION 97.4 % (92.0-98.5); ABG PCO2 51.9 mmHg (35.0-45.0); ABG PH 7.324 (7.350-7.450); ABG PO2 125.3 mmHg (75.0-100.0); ABG TOTAL HEMOGLOBIN 11.5 G/dL (13.5-18.0); AaDO2 100.2 mmHg; COHb 0.6 % (0.5-1.5); MetHb 0.7 % (0.0-1.5); O2Hb 96.1 % (94.0-97.0); SITE, ABG Right Radial
--- NOTE | 2017-02-06 18:19 | NUR ---
RT END OF THE SHIFT REPORT: PT. 61 Y OLD MALE REMAIN ORALLY INTUBATED ETT # 7.0 @ 26 CM LIPLINE (SURGEN SECURED THE TUBE BY TIGHTEN TO PT. TEETH. ) ETT TAPE OVER PT. ON VENT WITH NOTED AC SETTINGS, PT. PLACED ON SIMV MODE THIS MORNING AND JO. WELL POST ABG PT. AGITATION INCREASED AND PLACED ON AC MODE PER MD ORDER NO CHANGES AFTER PT. REMAIN STABLE. B/S CLEAR BILATERALLY, EQUAL CHEST RISE NOTED, C4 PLANNER DONE HME XCHANGED SUX'D FOR MINIMAL YELLOW THICK SECRETIONS, CONTINUE MONITOR. AMBU BAG REMAIN AT THE BEDSIDE. AND VENT PLUGGED INTO RED OUTLET. REPORT WILL BE PASS TO PM SHIFT. Addendum: 02/06/17 at 1823 by JUN SANDHU RT Amended: Links added.
--- NOTE | 2017-02-06 19:05 | NUR ---
ICU CLOSING RN NOTES PATIENT STABLE AT THIS TIME , NOT IN ACUTE DISTRESS , RESPIRATIONS EVEN AND UNLABORED , SPO2 OF 100% VIA MECHANICAL VENTILATOR SETTINGS ORDERED , ETT 7.0/[address] SR 51 ON BEDSIDE MONITOR , OJT IN PLACE , FC DRAINING WELL VIA GRAVITY WITH ALEXIA COLORED URINE , ON BEDREST ON KCI MATTRESS AND DVT PUMPS , BILATERAL MEENA DRAIN SITE DRESSING C/D/I NO ACTIVE BLEEDING AFTER DISCONTINUING, , FACIAL DRESSING C/D/I NO S/S OF BLEEDING , R AC # 20 PATENT AND INTACT SL , R FEMORAL TRIPLE LUMEN CATHETER C/D/I WITH MORPHINE DRIP @ 10MG/HR , VERSED @ 7MG/HR AND NS @ 40ML/HR INFUSING WELL , ALL NEEDS ATTENDED , BED ON LOW AND LOCKED POSITION , SIDE RAILS X2 ,CALL LIGHT WITHIN REACH , HOB @ 35 , REPORT GIVEN TO KENYATTA FOR CONTINUITY OF CARE
[2017-02-07] VITALS (48 sets, daily range): BP systolic 99–164; BP diastolic 55–112
[2017-02-07] MEDS: LORAZEPAM INJ 2 MG/ML VIAL IV PRN (00:22)
[2017-02-07] MEDS: MEROPENEM 1 G in IV NS 0.9% 100 ML IV SCH ×3 (02:02→17:46)
[2017-02-07] MEDS: VANCOMYCIN 1.25 GM in IV D5W 500 ML IV SCH ×3 (04:30→20:31)
[2017-02-07 04:43] LABS: BASOPHILS % (AUTO) 0.3 % (0.0-2.0); EOSINOPHILS % (AUTO) 0.3 % (0.0-6.0); HEMATOCRIT 28 % (39-51); HEMOGLOBIN 9.4 g/dL (13.5-17.5); LYMPHOCYTES # (AUTO) 1.7 /CMM (0.8-4.8); LYMPHOCYTES % (AUTO) 19.7 % (20.0-44.0); MEAN CORPUSCULAR HEMOGLOBIN 29 PG (26.0-33.0); MEAN CORPUSCULAR HGB CONC 33 g/dl (31.0-36.0); MEAN CORPUSCULAR VOLUME 88 fL (80-96); MONOCYTES # (AUTO) 0.6 /CMM (0.1-1.30); MONOCYTES % (AUTO) 7.1 % (2.0-12.0); NEUTROPHILS # (AUTO) 6.4 /CMM (1.8-8.9); NEUTROPHILS % (AUTO) 72.6 % (43.0-81.0); PLATELET COUNT (AUTO) 233 /CMM (150-450); RDW COEFFICIENT OF VARIATION 14.9 (11.5-15.0); RED BLOOD CELL COUNT(AUTO) 3.23 MIL/uL (4.5-6.0); WHITE BLOOD COUNT (AUTO) 8.9 K/uL (4.3-11.0)
[2017-02-07] MEDS: MIDAZOLAM HCL 100 MG in IV NS 0.9% 80 ML IV PRN (04:52)
[2017-02-07 04:54] LABS: ALBUMIN 2.3 g/dL (3.4-5.0); BILIRUBIN,TOTAL 0.9 mg/dL (0.2-1.0); CALCIUM, SERUM 8.3 mg/dL (8.5-10.1); CREATININE 0.7 mg/dL (0.6-1.3); MAGNESIUM 1.9 mg/dL (1.8-2.4); PHOSPHORUS 2.9 mg/dL (2.5-4.9); POTASSIUM 3.1 mmol/L (3.5-5.1); TOTAL PROTEIN, SERUM 5.4 g/dL (6.4-8.2)
--- NOTE | 2017-02-07 07:31 | NUR ---
AGRICULTURAL EXTENSION AGENT RECEIVED PATIENT FROM THE PREVIOUS SHIFT. PATIENT IN BED. RESTING COMFORTABLY. TURNED OFF VERSED GTT AND LOWERED THE MORPHINE GTT PER MD ORDER. ORALLY INTUBATED. AC MODE AT THIS TIME. AFEBRILE. SINUS MICKEY ON MONITOR. EVEN NON LABORED BREATHING PATTERN. HYPOACTIVE BOWEL SOUNDS. WILL CONTINUE TO MONITOR.
[2017-02-07] MEDS ORDERED: DC PROPOFOL WHEN EXTUBATED XX PRN (08:00)
[2017-02-07] MEDS ORDERED: POTASSIUM CL. PREMIX PERIPHER. 50 ML IV SCH (09:00)
--- NOTE | 2017-02-07 09:05 | NUR ---
PT EXTUBATED WITH MD AT BEDSIDE. ZERO DISTRESS NOTED B/S EQUAL. ZERO STRIDOR NOTED.
[2017-02-07] MEDS ORDERED: IV SET PRIMARY PUMP SET 1 EA INFUS.SET MC ONE ×2 (09:22→21:49)
[2017-02-07] MEDS: HYDROCORTISONE SOD SUCCINATE 100 MG/2 ML VIAL IV SCH ×2 (09:27→17:46)
[2017-02-07] MEDS: POTASSIUM CL. PREMIX PERIPHER. 50 ML IV SCH ×6 (09:27→15:49)
[2017-02-07] MEDS ORDERED: MORPHINE SULFATE INJ 2 MG/ML DISP.SYRIN IV PRN (10:00)
[2017-02-07 12:13] LABS: IMMUNOGLOBULIN A, SERUM 149 mg/dL (61-437); IMMUNOGLOBULIN G, SERUM 609 mg/dL (700-1600); IMMUNOGLOBULIN M, SERUM 38 mg/dL (20-172)
--- NOTE | 2017-02-07 12:43 | NUR ---
SALES ANALYST RN SPOKE TO THE SURGEON. SURGEON UPDATED REGARDING PATIENT'S HEALTH STATUS. SURGEON RECOMMENDED TO FOLLOW UP WITH HR BUSINESS PARTNER CONSULTANT TO MAINTAIN SBP LESS THAN 120. RN SPOKE TO HR BUSINESS PARTNER CONSULTANT RECEIVED ORDERS FOR ADMINISTER NITROPASTE 2GM BID.
[2017-02-07] MEDS: NITROGLYCERIN 30 GM TUBE TP SCH ×2 (13:35→22:45)
--- NOTE | 2017-02-07 14:05 | NUR ---
CONDITIONING YARD SUPERVISOR PATIENT WAS SEEN AND EXAMINED BY DR. RICE, THE PLASTIC SURGEON. MD ASSESSED THE PATIENT'S FACIAL SURGICAL SITES. RECEIVED MD ORDERS NOT TO CHANGE THE FACIAL SURGICAL SITE DRESSINGS AT THIS TIME. MD SAID HE WILL FOLLOW UP WITH PATIENT'S STATUS TOMORROW.
[2017-02-07 14:16] LABS: *SPE A/G RATIO 1.2 (0.7-1.7); *SPE ALBUMIN 2.6 g/dL (2.9-4.4); *SPE ALPHA-1-GLOBULIN 0.3 g/dL (0.0-0.4); *SPE ALPHA-2-GLOBULIN 0.6 g/dL (0.4-1.0); *SPE BETA GLOBULIN 0.7 g/dL (0.7-1.3); *SPE GLOBULIN, TOTAL 2.1 g/dL (2.2-3.9); *SPE M-SPIKE Not Observed g/dL (Not Observed); *SPE PROTEIN TOTAL 4.7 g/dL (6.0-8.5); *SPEGAMMA GLOBULIN 0.5 g/dL (0.4-1.8)
[2017-02-07] MEDS: ONDANSETRON HCL/PF 4 MG/2 ML VIAL IVP PRN ×2 (16:05→22:50)
[2017-02-07] MEDS: IV NS 0.9% 1,000 ML IV PRN (18:39)
--- NOTE | 2017-02-07 20:00 | NUR ---
AUTOMOBILE MECHANIC RADIATOR: RECEIVED PT SITTING IN CHAIR, S/P EXTUBATION TODAY, NO DISTRESS AT THIS TIME, ON ROOM AIR SATING 100%. DENIED PAIN. IV HYDRATION ONGOING NS AT 40 ML/HR, C/O NAUSEA HAD ZOFRAN EARLIER, WILL REASSESS.. ALL NEEDS ATTENDED, FULL ASSESSMENT SEE ON FLOW SHEET. V/S STABLE. ONGOING MONITORING..
[2017-02-07] MEDS ORDERED: SECONDARY IV SET 1 EA INFUS.SET MC ONE (20:31)
--- NOTE | 2017-02-07 23:00 | NUR ---
MANUFACTURING ENGINEERING TECHNICIAN: ASSISTED TO BEDSIDE COMMODE. NO DISTRESS, URINATED 350 ML.
[2017-02-08] VITALS (21 sets, daily range): BP systolic 120–179; BP diastolic 58–113
[2017-02-08] MEDS: MEROPENEM 1 G in IV NS 0.9% 100 ML IV SCH ×3 (02:33→17:48)
[2017-02-08] MEDS: VANCOMYCIN 1.25 GM in IV D5W 500 ML IV SCH ×3 (04:13→20:40)
[2017-02-08 04:35] LABS: BASOPHILS % (AUTO) 0.3 % (0.0-2.0); EOSINOPHILS % (AUTO) 0.4 % (0.0-6.0); HEMATOCRIT 28 % (39-51); LYMPHOCYTES # (AUTO) 1.7 /CMM (0.8-4.8); LYMPHOCYTES % (AUTO) 15.7 % (20.0-44.0); MEAN CORPUSCULAR HEMOGLOBIN 29 PG (26.0-33.0); MEAN CORPUSCULAR HGB CONC 33 g/dl (31.0-36.0); MEAN CORPUSCULAR VOLUME 89 fL (80-96); MONOCYTES % (AUTO) 9.5 % (2.0-12.0); NEUTROPHILS # (AUTO) 7.8 /CMM (1.8-8.9); NEUTROPHILS % (AUTO) 74.1 % (43.0-81.0); PLATELET COUNT (AUTO) 269 /CMM (150-450); RDW COEFFICIENT OF VARIATION 15.4 (11.5-15.0); RED BLOOD CELL COUNT(AUTO) 3.09 MIL/uL (4.5-6.0); WHITE BLOOD COUNT (AUTO) 10.6 K/uL (4.3-11.0)
[2017-02-08] MEDS: ONDANSETRON HCL/PF 4 MG/2 ML VIAL IVP PRN ×3 (05:00→17:56)
--- NOTE | 2017-02-08 05:00 | NUR ---
ATTRACTION ATTENDANT; PT C/O NAUSEA, NO EMESIS PRESENT, ZOFRAN 4 MG IV PRN GIVEN.
--- NOTE | 2017-02-08 05:30 | NUR ---
HOEING ROW BOSS: ASSISTED PT TO GO BACK TO BED. CENTRAL LINE DRESSING CHANGED.
[2017-02-08 05:32] LABS: CALCIUM, SERUM 8.3 mg/dL (8.5-10.1); CREATININE 0.7 mg/dL (0.6-1.3); MAGNESIUM 1.9 mg/dL (1.8-2.4); PHOSPHORUS 2.2 mg/dL (2.5-4.9)
--- NOTE | 2017-02-08 07:35 | NUR ---
COUNTRY PRINTER APPRENTICE RECEIVE THE PATIENT FROM THE PREVIOUS SHIFT. PATIENT IN BED. RESTING COMFORTABLY. NO ACUTE DISTRESS. EVEN NON LABORED BREATHING PATTERN. AFEBRILE. SINUS MICKEY ON MONITOR. ROOM AIR. USES THE URINAL. FAMILY AT BEDSIDE. ABLE TO STAND UP BY THE BEDSIDE ON OWN. CALL LIGHT AT REACH. AWARE HOW TO USE. WILL CONTINUE TO MONITOR AND PROVIDE CARE.
[2017-02-08] MEDS ORDERED: POTASSIUM CHLORIDE 20 MEQ TAB.PRT.SR PO ONE ×2 (08:30→12:00)
[2017-02-08] MEDS: busPIRone 5 MG TABLET PO SCH ×3 (08:58→17:47)
[2017-02-08] MEDS: HYDROCORTISONE SOD SUCCINATE 100 MG/2 ML VIAL IV SCH ×2 (08:58→10:00)
[2017-02-08] MEDS: NITROGLYCERIN 30 GM TUBE TP SCH ×2 (09:01→20:49)
[2017-02-08] MEDS ORDERED: POTASSIUM PHOSPHATE MM 15 MMOL in IV D5W 250 ML IV SCH (09:30)
[2017-02-08] MEDS: LORAZEPAM INJ 2 MG/ML VIAL IV PRN (09:47)
--- NOTE | 2017-02-08 14:46 | NUR ---
[employer] OPERATOR TRANSFERRED THE PATIENT TO [facility] LEVEL OF CARE ON STABLE CONDITIONS. W/C TRANSFER. REPORT GIVEN TO RECEIVING RN.
--- NOTE | 2017-02-08 14:50 | NUR ---
MS RN NOTES RECEIVED PATIENT ALERT, OMITTED X3, NO SOB OR ACUTE DISTRESS NOTED. PATIENT WITH RIGHT FEMORAL CENTRAL LINE 3 LUMEN INTACT PATENT. DENIES ANY PAIN OR DISCOMFORT. BED IN LOW LOCKED POSITION. CALL LIGHT WITHIN REACH. DRESSING NOTED ON FACE ORDERS NOT TO BE CHANGED UNLESS BY MD. WILL CONTINUE TO MONITOR.
[2017-02-08] MEDS ORDERED: SECONDARY IV SET 1 EA INFUS.SET MC ONE ×3 (15:38→20:43)
[2017-02-08] MEDS ORDERED: IV NS 0.9% 250 ML IV ONE (15:38)
[2017-02-08] MEDS ORDERED: IV SET PRIMARY PUMP SET 1 EA INFUS.SET MC ONE (15:38)
[2017-02-08] MEDS: SOD FERRIC GLUC 125 MG in IV NS 0.9% 100 ML IV SCH (15:50)
--- NOTE | 2017-02-08 19:21 | NUR ---
MS RN NOTES PATIENT IN BED RESTING NO SOB OR ACUTE DISTRESS NOTED. ALL DUE MEDICATIONS ADMINISTERED. ALL NEEDS MET. PATIENT WITH RIGHT FEMORAL CENTRAL LINE INTACT PATENT. ENDORSED CARE TO PM SHIFT.
--- NOTE | 2017-02-08 19:34 | NUR ---
MS/RN OPENING NOTES PATIENT IN BED, AWAKE, ALERTX3. FAMILY MEMBER WAS AT BEDSIDE. RECEIVED ENDORSEMENT FORM AM RN. WILL CONTINUE JOHNATHAN. CALL LIGHTS WITHIN REACH. WILL CONTINUE TO MONITOR AND PROVIDE CARE.
--- NOTE | 2017-02-08 19:36 | NUR ---
MS/RN NOTES DR. MERCHANT MADE ROUNDS AND DISCUSSES BONE MARROW BIOPSY PROCEDURE WITH PATIENT
[2017-02-09] VITALS: BP 126/69
[2017-02-09] MEDS: MEROPENEM 1 G in IV NS 0.9% 100 ML IV SCH ×2 (02:32→10:13)
[2017-02-09] MEDS: VANCOMYCIN 1.25 GM in IV D5W 500 ML IV SCH ×2 (04:39→12:31)
--- NOTE | 2017-02-09 05:17 | NUR ---
MS/RN NOTES PATIENT REMOVED BANDAGE ON NECK. INFORMED THAT MD WILL BE REMOVING IT TODAY. OBSERVED DRY BLOOD ON DRESSING. INFORMED THE NEED TO COVER TO PROTECT SITE. REINFORCE DRESSING. PATIENT COOPERATIVE TO CARE. PHOTOS TAKEN.
[2017-02-09 06:40] LABS: BASOPHILS % (AUTO) 0.3 % (0.0-2.0); EOSINOPHILS # (AUTO) 0.1 /CMM (0.0-0.7); EOSINOPHILS % (AUTO) 1.5 % (0.0-6.0); HEMATOCRIT 29 % (39-51); HEMOGLOBIN 9.6 g/dL (13.5-17.5); LYMPHOCYTES # (AUTO) 1.9 /CMM (0.8-4.8); LYMPHOCYTES % (AUTO) 21.9 % (20.0-44.0); MEAN CORPUSCULAR HEMOGLOBIN 30 PG (26.0-33.0); MEAN CORPUSCULAR HGB CONC 33 g/dl (31.0-36.0); MEAN CORPUSCULAR VOLUME 89 fL (80-96); MONOCYTES # (AUTO) 0.7 /CMM (0.1-1.30); MONOCYTES % (AUTO) 8.8 % (2.0-12.0); NEUTROPHILS # (AUTO) 5.8 /CMM (1.8-8.9); NEUTROPHILS % (AUTO) 67.5 % (43.0-81.0); PLATELET COUNT (AUTO) 261 /CMM (150-450); RDW COEFFICIENT OF VARIATION 15.6 (11.5-15.0); RED BLOOD CELL COUNT(AUTO) 3.27 MIL/uL (4.5-6.0); WHITE BLOOD COUNT (AUTO) 8.6 K/uL (4.3-11.0)
--- NOTE | 2017-02-09 06:40 | NUR ---
MS/RN NOTES PATIENT IN BED. AWAKE. ALERT, ORIENTED X3 NO S/S OF SOB OR DISTRESS. ABLE TO VERBALIZE NEEDS. WILL ENDORSE TO AM RN REGARDING JOHNATHAN.
[2017-02-09 06:54] LABS: INR 0.97 (0.87-1.13); PROTHROMBIN TIME 10.4 SECS (9.5-12.7)
[2017-02-09 06:55] LABS: CALCIUM, SERUM 8.3 mg/dL (8.5-10.1); CREATININE 0.7 mg/dL (0.6-1.3); PHOSPHORUS 2.7 mg/dL (2.5-4.9); POTASSIUM 3.4 mmol/L (3.5-5.1)
--- NOTE | 2017-02-09 07:30 | NUR ---
RN MS NOTES PT IN BED, AWAKE, ALERT AND ORIENTED, NO COMPLAINT OF PAIN, BREATHING PATTERN NORMAL, CALL LIGHT WITHIN REACH, IV SITE AT RIGHT FEMORAL INTACT AND PATENT, NO S/S OF INFECTION OR INFILTRATION NOTED, NEEDS ATTENDED, PLAN OF CARE DISCUSSED WITH PT AND HIS SISTER, VERBALIZED UNDERSTANDING.
[2017-02-09 08:00] VITALS: BP 138/86
[2017-02-09] MEDS: busPIRone 5 MG TABLET PO SCH ×3 (08:59→17:36)
[2017-02-09] MEDS: HYDROCORTISONE SOD SUCCINATE 100 MG/2 ML VIAL IV SCH (09:00)
[2017-02-09] MEDS: NITROGLYCERIN 30 GM TUBE TP SCH (09:00)
[2017-02-09] MEDS: ONDANSETRON HCL/PF 4 MG/2 ML VIAL IVP PRN (10:21)
[2017-02-09] MEDS ORDERED: POTASSIUM CHLORIDE 20 MEQ TAB.PRT.SR PO ONE (10:30)
--- NOTE | 2017-02-09 13:00 | NUR ---
RN MS NOTES PT IN BED, RESTING, DUE MEDS GIVEN ORDERED, ON ATB THERAPY, GIVEN ORDERED, NO S/E NOTED, AMBULATES WITH STEADY GAIT, NEEDS ATTENDED.
[2017-02-09] MEDS ORDERED: PRED20TA PO (14:21)
[2017-02-09] MEDS ORDERED: PRED10TA23 PO ×2 (14:21)
[2017-02-09] MEDS ORDERED: CEPH-570 PO (14:21)
[2017-02-09] MEDS ORDERED: PRED10TA PO (14:21)
[2017-02-09] MEDS: SOD FERRIC GLUC 125 MG in IV NS 0.9% 100 ML IV SCH (15:35)
[2017-02-09 16:00] VITALS: BP 130/79
[2017-02-09 16:29] LABS: *HIV-1 RNA BY PCR <40 copies/mL (.)
--- NOTE | 2017-02-09 18:12 | NUR ---
RN MS NOTES PT AWAKE, ALERT AND ORIENTED, NO COMPLAINT OF PAIN, RESPIRATIONS NORMAL, PT SEEN BY JOSÉ AMBROSIO, PLAN OF CARE DISCUSSED WITH PT AND HIS SISTER MENDEZ, VERBALIZED UNDERSTANDING, DISCHARGE ORDER GIVEN, DISCHARGE AND MEDICATION INSTRUCTIONS PROVIDED TO PT, PT TO FOLLOW UP WITH HIS PRIMARY CARE PHYSICIAN, HIS SURGEON AND DR. MERCHANT TOMORROW, PT VERBALIZED UNDERSTANDING, SKIN CHECK DONE, BELONGINGS ACCOUNTED FOR, PRESCRIPTION GIVEN TO PT, CENTRAL LINE AT RIGHT FEMORAL REMOVED, VERY MINIMAL BLEEDING NOTED, PRESSURE APPLIED TO SITE, PRESSURE DRESSING APPLIED, NO BLEEDING NOTED TO SURGERY SITES, PT SEEN BY DR. MERCHANT BEFORE DISCHARGE, PT LEFT WITH HIS SISTER IN STABLE CONDITION.
[2017-02-10] MEDS ORDERED: HYDROCORTISONE SOD SUCCINATE 100 MG/2 ML VIAL IV SCH (09:00)
[2017-02-10 09:26] LABS: BETA-2 MICROGLOBULIN, SERUM 1.7 mg/L (0.6-2.4)
[2017-02-10 17:45] LABS: FREE LAMBDA LT CHAIN SERUM 14.86 mg/L (5.71-26.30)
== END 2017-02-09 18:05 | disposition home or self-care (01) | DRG 907 ==
LOC: ER 16:02 → TELE 20:14 → ICU 21:29 → MED 02-08 14:30
PROVIDERS: ADMIT Nurse Practitioner Acute Care; ATTEND Nurse Practitioner Acute Care
PROC: 5A1955Z Respiratory Ventilation, Greater than 96 Consecutive Hours (ICD-10-PCS; 2017-02-02)
PROC: 30233N1 Transfusion of Nonautologous Red Blood Cells into Peripheral Vein, Percutaneous Approach (ICD-10-PCS; 2017-02-02)
PROC: 0BH17EZ Insertion of Endotracheal Airway into Trachea, Via Natural or Artificial Opening (ICD-10-PCS; principal; 2017-02-02 19:30)
PROC: 02HV33Z Insertion of Infusion Device into Superior Vena Cava, Percutaneous Approach (ICD-10-PCS; 2017-02-03)
PROC: 06HN33Z Insertion of Infusion Device into Left Femoral Vein, Percutaneous Approach (ICD-10-PCS; 2017-02-03)
PROC: 0W9200Z Drainage of Face with Drainage Device, Open Approach (ICD-10-PCS; 2017-02-04)
PROC: 0W9600Z Drainage of Neck with Drainage Device, Open Approach (ICD-10-PCS; 2017-02-04)
DX: L76.32 Postprocedural hematoma of skin and subcutaneous tissue following other procedure (principal); J96.01 Acute respiratory failure with hypoxia; J96.02 Acute respiratory failure with hypercapnia; I21.4 Non-ST elevation (NSTEMI) myocardial infarction; R57.1 Hypovolemic shock; J69.0 Pneumonitis due to inhalation of food and vomit; D62 Acute posthemorrhagic anemia; E44.0 Moderate protein-calorie malnutrition; E27.40 Unspecified adrenocortical insufficiency; Y83.8 Other surgical procedures as the cause of abnormal reaction of the patient, or of later complication, without mention of misadventure at the time of the procedure; E78.5 Hyperlipidemia, unspecified; E66.9 Obesity, unspecified; F43.22 Adjustment disorder with anxiety; F41.9 Anxiety disorder, unspecified; D50.9 Iron deficiency anemia, unspecified; E87.6 Hypokalemia; I11.9 Hypertensive heart disease without heart failure; Y92.9 Unspecified place or not applicable
CPT/HCPCS: 31720; 36415; 36600; 71010-TC; 77075-TC; 80048-TC; 80053-TC; 80061-TC; 80076-TC; 80202-TC; 81000-TC; 82232; 82533; 82570-TC; 82728-TC; 82746; 82784; 82803-TC; 83540-TC; 83735-TC; 83935-TC; 84100-TC; 84155; 84165; 84300-TC; 84443-TC; 84484-TC; 85025-TC; 85240; 85245; 85246; 85385-TC; 85610-TC; 85730-TC; 86334; 86360; 86850-TC; 86921-TC; 87040-TC; 87081-TC; 87086-TC; 87536; 93307-TC; 94002-TC; 94003-TC; 94799-TC; A4216; A4606; A6253; A6402; A6403; J0461; J0690; J1100; J1265; J1720; J2060; J2185; J2250; J2270; J2274; J2370; J2405; J2597; J2704; J2916; J3010; J3370; J3480; J3490; J7030; J7040; J7050; J7060; P9016-BL; P9045; Z7610